=== PATIENT | female | born 2000 | race Two or more races ===

== ENCOUNTER 2023-10-13 17:36 | Emergency (ER) | payer OTHER ==
[~2023-10-13] VITALS: Ht 162.6 cm; Wt 49.9 kg
[2023-10-13] MEDS ORDERED: CIPROFLOX-DEXA7.5 ML OT (18:58)
== END 2023-10-13 19:05 ==
LOC: ER 17:38
DX: H60.91 Unspecified otitis externa, right ear (principal)

== ENCOUNTER 2023-10-16 18:21 | Emergency (ER) | payer OTHER ==
[~2023-10-16] VITALS: Ht 157.5 cm; Wt 49.9 kg
[~2023-10-16 18:21] MED LIST: CIPROFLOX-DEXA7.5 ML OT
[2023-10-16 20:40] LABS: HEMATOCRIT 37.6 % (36.0-45.00); HEMOGLOBIN 12.9 g/dL (12.0-15.00); MEAN CORPUSCULAR HEMOGLOBIN 30.5 pg (27.00-32.0); MEAN CORPUSCULAR HGB CONC 34.2 g/dl (32.0-36.0); PLATELET COUNT 267 K/uL (150-450); RED BLOOD COUNT 4.23 M/uL (4.00-6.00); RED CELL DISTRIBUTION WIDTH 12.7 % (11.5-14.5)
[2023-10-16 21:01] LABS: ALBUMIN 3.4 gm/dL (3.4-5.0); BILIRUBIN TOTAL 0.17 mg/dL (0.3-1.2); CALCIUM 8.6 mg/dL (8.5-10.1); CREATININE SERUM 0.71 mg/dL (0.55-1.02); GFR 102.94; GLOBULINA 4.3 G/DL (2.4-3.5); POTASSIUM 3.65 mEq/L (3.5-5.1); TOTAL PROTEIN 7.7 gm/dL (6.4-8.2)
== END 2023-10-16 21:37 | disposition home or self-care (01) ==
LOC: ER 18:21
PROVIDERS: General Practice
DX: R10.11 Right upper quadrant pain (principal); R10.9 Unspecified abdominal pain